=== PATIENT | male | born 1995 | race Caucasian/White ===

== ENCOUNTER 2018-09-02 17:43 | Emergency (ER) | payer SELFPAY ==
--- NOTE | 2018-09-02 17:50 | NUR ---
CALLED TO TRIAGE,NO ANSWER
--- NOTE | 2018-09-02 18:00 | NUR ---
CALLED TO TRIAGE,NO ANSWER
--- NOTE | 2018-09-02 18:18 | NUR ---
PATIENT LEFT, PER ADMITTING
== END 2018-09-02 18:19 | disposition left against medical advice (07) ==
LOC: ER 17:47
DX: Z53.21 Procedure and treatment not carried out due to patient leaving prior to being seen by health care provider (principal)